=== PATIENT | female | born 1965 | race Caucasian/White ===

== ENCOUNTER 2017-06-08 10:00 | Day surgery (SDC) | payer OTHER ==
[~2017-06-08] VITALS: Ht 167.6 cm; Wt 90.7 kg
[~2017-06-08 10:00] MED LIST: ALLEGRA ALLERG180 MG PO; ASCORBIC ACID500 M3 PO; CYMBALTA60 MG PO; DICLOFENAC SODI75 MG PO; INDERAL60 MG PO; LAMICTAL100 MG PO; LISINOPRIL20 MG PO; MAGNESIUM OXID500 M1 PO; MORPHINE SULFAT15 M1 PO; MOTRIN800 MG PO; MULTIPLE VITAM1 EAC1 PO; NORVASC5 MG PO; PERCOCET 5/31 TABLET PO; PRILOSEC OTC20 MG PO; PRILOSEC20 MG PO; ROBAXIN750 MG PO; SYNTHROID50 MCG PO; TYLENOL EXTRA500 MG PO; VITAMIN B COMP1 EACH PO; VITAMIN D31000 UNIT PO; ZANAFLEX4 MG PO; ZESTRIL20 MG PO
[2017-06-08] MEDS ORDERED: PERCOCET 7.51 TABLET PO (10:25)
[2017-06-08 10:29] VITALS: BP 121/79
[2017-06-08 11:42] LABS: METH RESISTANT S AUREUS PCR NEGATIVE (NEGATIVE); PROBE CHECK PASS; SPECIMEN PROCESSING CONTROL PASS
[2017-06-08 16:10] VITALS: BP 110/61
[2017-06-08 17:17] VITALS: BP 122/71
== END 2017-06-08 17:30 | disposition home or self-care (01) ==
LOC: SDC 10:00
PROVIDERS: Neurological Surgery
DX: M96.1 Postlaminectomy syndrome, not elsewhere classified (principal); G89.4 Chronic pain syndrome; G89.29 Other chronic pain; M51.06 Intervertebral disc disorders with myelopathy, lumbar region; M54.5 Low back pain; M48.06 Spinal stenosis, lumbar region; I10 Essential (primary) hypertension; K21.9 Gastro-esophageal reflux disease without esophagitis; E03.9 Hypothyroidism, unspecified; Z80.3 Family history of malignant neoplasm of breast; Z83.3 Family history of diabetes mellitus; Z82.49 Family history of ischemic heart disease and other diseases of the circulatory system
CPT/HCPCS: 72020; 76000; 87641; C1778; J0330; J1100; J1170; J1885; J2250; J2405; J2710; J2765; J3010; J3370